=== PATIENT | female | born 1955 | race Two or more races ===

== ENCOUNTER 2020-04-18 06:15 | Day surgery (SDC) | payer OTHER ==
[~2020-04-18 06:15] MED LIST: ATACAND4 MG PO; LEVOTHYROXINE25 MCG PO; SINGULAIR10 MG PO; ZYRTEC10 M3 PO
== END 2020-04-18 19:30 | disposition home or self-care (01) ==
LOC: CIR.AMB 06:15
PROVIDERS: ATTEND Orthopaedic Surgery Hand Surgery
DX: S56.311A Strain of extensor or abductor muscles, fascia and tendons of right thumb at forearm level, initial encounter (principal); Z20.828 Contact with and (suspected) exposure to other viral communicable diseases

== ENCOUNTER 2025-03-28 13:17 | Outpatient (CLI) | payer OTHER | END 2025-03-28 13:19 | disposition home or self-care (01) | LOC: SONOGRAMA 13:17 | PROVIDERS: ATTEND Pathology Anatomic Pathology & Clinical Pathology | DX: R22.33 Localized swelling, mass and lump, upper limb, bilateral (principal); N63.32 Unspecified lump in axillary tail of the left breast ==